=== PATIENT | male | born 1965 | race Caucasian/White ===

== ENCOUNTER 2018-01-06 13:25 | Emergency (ER) | payer OTHER ==
[2018-01-06 14:19] LABS: BASO % 0.4 % (0.0-1.0); EOS % 0.7 % (0.0-3.0); HEMATOCRIT 43.2 % (42.0-52.0); HEMOGLOBIN 15.1 g/dl (13.5-17.5); IMMATURE GRANULOCYTE % 0.2 % (0-3.0); LYMPH # 0.6 10^3/uL (1.5-4.5); LYMPH % 12.2 % (24.0-44.0); MEAN CORPUSCULAR HEMOGLOBIN 33.1 pg (27.0-33.0); MEAN CORPUSCULAR VOLUME 94.7 fl (80.0-96.0); MONO # 0.5 10^3/uL (0.0-0.8); MONO % 11.5 % (0.0-5.0); NEUTROPHILS # 3.4 10^3/uL (1.8-7.7); PLATELET COUNT, AUTOMATED 178 10^3/uL (150-450); RED BLOOD COUNT 4.56 10^6/uL (4.30-6.10); RED CELL DISTRIBUTION WIDTH 11.5 % (11.5-14.5); WHITE BLOOD COUNT 4.5 10^3/uL (4.0-10.0)
[2018-01-06 14:29] LABS: INR 0.94; PROTHROMBIN TIME 12.7 SECONDS (12.4-14.5)
[2018-01-06 14:41] LABS: ANION GAP 5 MEQ/L (8-16); BLOOD UREA NITROGEN 11 MG/DL (7-18); CALCIUM LEVEL 8.8 MG/DL (8.5-10.1); CARBON DIOXIDE LEVEL 30 MEQ/L (21-32); CHLORIDE LEVEL 109 MEQ/L (98-107); CREATININE FOR GFR 1.09 MG/DL (0.70-1.30); GLOMERULAR FILTRATION RATE > 60.0 (>56); GLUCOSE, FASTING 169 MG/DL (70-100); SODIUM LEVEL 144 MEQ/L (136-145)
[2018-01-06] MEDS ORDERED: ISOVUE-370 76% 100ML VIAL (Q9967) As Ordered (14:50)
[2018-01-06] MEDS ORDERED: cefTRIAXone SOD 1 GM VIAL (J0696) IM (16:15)
[2018-01-06] MEDS: cefTRIAXone SOD 1 GM in D5W MINI-BAG PLUS 50 ML IV (16:22)
== END 2018-01-06 16:58 | disposition home or self-care (01) ==
LOC: M ED 13:25
DX: J18.9 Pneumonia, unspecified organism (principal)
CPT/HCPCS: Q9967

== ENCOUNTER → 2018-01-06 | Outpatient (CLI) | payer OTHER | LOC: M ADAMS 12:20 | DX: R05 Cough (principal); R06.02 Shortness of breath | CPT/HCPCS: 71046 ==

== ENCOUNTER → 2020-01-16 | Outpatient (CLI) | payer OTHER ==
[~2020-01-16] MED LIST: PROAAER10 INH; ZITHTAB PO
--- NOTE | 2020-01-17 09:01 | REP ---
REASON FOR EXAM: Cough and dyspnea. COMPARISON: 01/06/2018 There is chronic elevation of the diaphragmatic surface of the left lung due to gas within the stomach. The lung castillo are clear and stable. The pleural angles are sharp. The heart is not enlarged. The osseous structures are stable and intact. IMPRESSION: No evidence of acute cardiopulmonary disease. Electronically Signed by Jimmy Ludwig DO 01/19/2020 10:53 A
== END ==
LOC: M ADAMS 10:42
PROVIDERS: ATTEND Physician Assistant Medical
DX: R06.02 Shortness of breath (principal); R05 Cough

== ENCOUNTER → 2020-02-02 | Outpatient (REF) | payer OTHER ==
[2020-02-02 14:15] LABS: BASO % 0.7 % (0.0-1.0); EOS # 0.2 10^3/uL (0.0-0.5); HEMATOCRIT 45.7 % (42.0-52.0); HEMOGLOBIN 15.9 g/dl (13.5-17.5); LYMPH % 18.9 % (24.0-44.0); MEAN CORPUSCULAR HGB CONC 34.8 g/dl (32.0-36.5); MEAN CORPUSCULAR VOLUME 97.6 fl (80.0-96.0); MONO # 0.7 10^3/uL (0.0-0.8); MONO % 13.5 % (0.0-5.0); NEUTROPHILS # 3.4 10^3/uL (1.5-8.5); NEUTROPHILS % 63.5 % (36.0-66.0); PLATELET COUNT, AUTOMATED 185 10^3/uL (150-450); RED BLOOD COUNT 4.68 10^6/uL (4.30-6.10); WHITE BLOOD COUNT 5.4 10^3/uL (4.0-10.0)
[2020-02-02 14:39] LABS: ALBUMIN 3.7 GM/DL (3.2-5.2); ALT/SGPT 65 U/L (12-78); BILIRUBIN,TOTAL 0.9 MG/DL (0.2-1.0); BLOOD UREA NITROGEN 13 MG/DL (7-18); CALCIUM LEVEL 9.1 MG/DL (8.5-10.1); CARBON DIOXIDE LEVEL 28 MEQ/L (21-32); CHLORIDE LEVEL 104 MEQ/L (98-107); CHOLESTEROL LEVEL 245 MG/DL (<200); CHOLESTEROL RISK RATIO 3.828 (<5); CREATININE FOR GFR 0.89 MG/DL (0.70-1.30); GLOMERULAR FILTRATION RATE > 60.0 (>56); GLUCOSE, FASTING 95 MG/DL (70-100); HDL CHOLESTEROL 64 MG/DL (>40); LDL CHOLESTEROL 142 MG/DL (<100); NON-HDL-C 181 MG/DL; POTASSIUM SERUM 4.4 MEQ/L (3.5-5.1); SODIUM LEVEL 138 MEQ/L (136-145); TOTAL 25(OH) VITAMIN D 53.8 NG/ML (30.0-100.0); TOTAL PROTEIN 7.1 GM/DL (6.4-8.2); TRIGLYCERIDES LEVEL 196 MG/DL (<150)
== END ==
LOC: M SFHCADAM 08:04
PROVIDERS: ATTEND Physician Assistant Medical
DX: E78.2 Mixed hyperlipidemia (principal); I10 Essential (primary) hypertension; R06.02 Shortness of breath; R05 Cough

== ENCOUNTER → 2021-04-14 | Outpatient (REF) | payer OTHER ==
[2021-04-14 15:01] LABS: BASO % 0.8 % (0.0-1.0); EOS # 0.1 10^3/uL (0.0-0.5); EOS % 3.4 % (0.0-3.0); HEMATOCRIT 43.1 % (42.0-52.0); HEMOGLOBIN 14.5 g/dl (13.5-17.5); LYMPH # 0.5 10^3/uL (1.5-5.0); LYMPH % 14.8 % (24.0-44.0); MEAN CORPUSCULAR HEMOGLOBIN 32.3 pg (27.0-33.0); MEAN CORPUSCULAR HGB CONC 33.6 g/dl (32.0-36.5); MONO # 0.5 10^3/uL (0.0-0.8); MONO % 12.6 % (2.0-8.0); NEUTROPHILS # 2.4 10^3/uL (1.5-8.5); NEUTROPHILS % 68.1 % (36.0-66.0); PLATELET COUNT, AUTOMATED 178 10^3/uL (150-450); RED BLOOD COUNT 4.49 10^6/uL (4.30-6.10); WHITE BLOOD COUNT 3.6 10^3/uL (4.0-10.0)
[2021-04-14 15:29] LABS: HEMOGLOBIN A1c 5.7 %
[2021-04-14 15:40] LABS: ALBUMIN 3.8 GM/DL (3.2-5.2); ALT/SGPT 48 U/L (12-78); BILIRUBIN,TOTAL 0.9 MG/DL (0.2-1.0); BLOOD UREA NITROGEN 6 MG/DL (7-18); CARBON DIOXIDE LEVEL 31 MEQ/L (21-32); CHLORIDE LEVEL 102 MEQ/L (98-107); CHOLESTEROL LEVEL 239 MG/DL (<200); CHOLESTEROL RISK RATIO 2.276 (<5); CREATININE FOR GFR 0.64 MG/DL (0.70-1.30); GLOMERULAR FILTRATION RATE > 60.0 (>56); GLUCOSE, FASTING 91 MG/DL (70-100); HDL CHOLESTEROL 105 MG/DL (>40); LDL CHOLESTEROL 122 MG/DL (<100); NON-HDL-C 134 MG/DL; POTASSIUM SERUM 4.5 MEQ/L (3.5-5.1); SODIUM LEVEL 137 MEQ/L (136-145); TOTAL PROTEIN 7.3 GM/DL (6.4-8.2); TRIGLYCERIDES LEVEL 60 MG/DL (<150)
== END ==
LOC: M SFHCADAM 08:05
PROVIDERS: ATTEND Physician Assistant Medical
DX: E78.2 Mixed hyperlipidemia (principal); I10 Essential (primary) hypertension

== ENCOUNTER → 2021-05-05 | Outpatient (CLI) | payer OTHER ==
--- NOTE | 2021-05-05 18:40 | ECHO ---
ECHOCARDIOGRAM DATE OF PROCEDURE: 05/05/2021 Age: 56 Gender: Male Height: 68 inches Weight: 181 pounds Body Surface Area: 1.95 PATIENT LOCATION: Outpatient. REFERRING PROVIDER: Lana Vigil INDICATION: Cardiomegaly. MEASUREMENTS: 2D Measurements: RV - 4.0 cm LV - 4.7 cm Septum 1.1 cm Posterior wall 1.1 cm Aortic root 3.8 cm Ascending aorta 3.7 cm LA - 4.0 cm LVEF 75% Doppler Measurements: AV - 1.3 m/sec LVOT 1.05 m/sec MV-E 76, A 52, EA ratio 1.5 Early mitral deceleration time 197 msec E prime medial 7.8 A prime medial 8.7 E prime lateral 7.5 Average E/E ratio 9.9/PCWP 14.2 mmHg PV 0.82 m/sec Pulmonary artery acceleration time 114 msec RVSP 34 mmHg IVC - 1.6 cm COMMENTS: Normal sinus rhythm without intraventricular conduction disturbance. Technically challenging study in light of the patient's body habitus, but diagnostically useful information was still obtained. M-mode and 2-dimensional echocardiography was performed with pulse, continuous wave, color flow and tissue Doppler studies. Left ventricular wall thickness upper limits of normal with normal chamber size and hyperkinetic wall motion. Borderline left atrial enlargement with currently normal Doppler assessment of left ventricular (LV) diastolic function and estimated mean left atrial pressure. Right heart chambers upper limits of normal with normal wall motion and Doppler evidence of mild pulmonary hypertension. Normal inferior vena cava (IVC) size and collapse against an elevated central venous pressure. Aortic root diameter upper limits of normal with borderline increased ascending aorta diameter. Normal appearing and functioning aortic valve. Normal appearing and functioning mitral valve with only trace insufficiency. Normal appearing and functioning tricuspid valve with very mild insufficiency. No apparent intracardiac mass or pericardial effusion.
== END ==
LOC: M CARPUL 10:41
PROVIDERS: ATTEND Physician Assistant Medical
DX: I51.7 Cardiomegaly (principal)

== ENCOUNTER 2021-08-12 16:38 | Emergency (ER) | payer OTHER ==
[~2021-08-12] VITALS: Ht 175.3 cm; Wt 83.2 kg
[2021-08-12] MEDS ORDERED: ZINC1TAB2 PO (16:49)
[2021-08-12] MEDS ORDERED: LEXA1TAB PO (16:49)
[2021-08-12] MEDS ORDERED: NS 1,000 ML IV ONE (16:50)
[2021-08-12 17:30] VITALS: BP 143/88
[2021-08-12 17:40] LABS: BASO % 0.5 % (0.0-1.0); EOS # 0.1 10^3/uL (0.0-0.5); EOS % 1.3 % (0.0-3.0); HEMATOCRIT 41.6 % (42.0-52.0); HEMOGLOBIN 14.3 g/dl (13.5-17.5); LYMPH # 0.8 10^3/uL (1.5-5.0); LYMPH % 12.5 % (24.0-44.0); MEAN CORPUSCULAR HEMOGLOBIN 33.4 pg (27.0-33.0); MEAN CORPUSCULAR HGB CONC 34.4 g/dl (32.0-36.5); MEAN CORPUSCULAR VOLUME 97.2 fl (80.0-96.0); MONO # 0.5 10^3/uL (0.0-0.8); MONO % 8.7 % (2.0-8.0); NEUTROPHILS # 4.7 10^3/uL (1.5-8.5); NEUTROPHILS % 76.7 % (36.0-66.0); PLATELET COUNT, AUTOMATED 178 10^3/uL (150-450); RED BLOOD COUNT 4.28 10^6/uL (4.30-6.10); WHITE BLOOD COUNT 6.1 10^3/uL (4.0-10.0)
--- NOTE | 2021-08-12 17:42 | REP ---
INDICATION: Drug Overdose COMPARISON: 01/16/2020 TECHNIQUE: Portable AP view of the chest FINDINGS: The mediastinum and cardiac silhouette are stable and within normal limits for portable technique. The lung castillo are clear without acute consolidation, effusion, or pneumothorax. Skeletal structures are intact. IMPRESSION: No acute cardiopulmonary process appreciated. <Electronically signed by Elbert Ayala > 08/12/21 [id number]
[2021-08-12 18:43] LABS: AMPHETAMINES LEVEL URINE NEGATIVE (NEGATIVE); BARBITURATES URINE NEGATIVE (NEGATIVE); BENZODIAZEPINES URINE NEGATIVE (NEGATIVE); CANNABINOIDS URINE POSITIVE (NEGATIVE); COCAINE METABOLITE URINE NEGATIVE (NEGATIVE); METHADONE URINE NEGATIVE (NEGATIVE); OPIATES URINE NEGATIVE (NEGATIVE); PHENCYCLIDINE URINE NEGATIVE (NEGATIVE)
[2021-08-12 19:17] LABS: ACETAMINOPHEN LEVEL < 2.0 UG/ML (10.0-30.0); ALBUMIN 4.1 GM/DL (3.2-5.2); ALT/SGPT 53 U/L (12-78); BILIRUBIN,DIRECT 0.1 MG/DL (0.0-0.2); BILIRUBIN,TOTAL 0.4 MG/DL (0.2-1.0); BLOOD UREA NITROGEN 12 MG/DL (7-18); CALCIUM LEVEL 8.7 MG/DL (8.5-10.1); CARBON DIOXIDE LEVEL 28 MEQ/L (21-32); CHLORIDE LEVEL 94 MEQ/L (98-107); CREATININE FOR GFR 0.66 MG/DL (0.70-1.30); GLOMERULAR FILTRATION RATE > 60.0 (>56); GLUCOSE, FASTING 113 MG/DL (70-100); POTASSIUM SERUM 4.4 MEQ/L (3.5-5.1); SALICYLATE LEVEL < 1.7 MG/DL (5.0-30.0); SODIUM LEVEL 132 MEQ/L (136-145); TOTAL PROTEIN 7.4 GM/DL (6.4-8.2)
--- NOTE | 2021-08-13 07:49 | ECGEPIP ---
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
== END 2021-08-12 20:46 | disposition home or self-care (01) ==
LOC: M ED 16:38
DX: R55 Syncope and collapse (principal); Z53.9 Procedure and treatment not carried out, unspecified reason; F32.9 Major depressive disorder, single episode, unspecified; F12.10 Cannabis abuse, uncomplicated; F10.10 Alcohol abuse, uncomplicated

== ENCOUNTER → 2022-06-01 | Outpatient (REF) | payer OTHER ==
[~2022-06-01] MED LIST changes: +LEXA1TAB PO; +ZINC1TAB2 PO
[2022-06-01 14:20] LABS: BLOOD UREA NITROGEN 5 MG/DL (7-18); CREATININE FOR GFR 0.71 MG/DL (0.70-1.30); GLUCOSE, FASTING 93 MG/DL (70-100)
[2022-06-01 14:21] LABS: ALBUMIN 4.2 GM/DL (3.2-5.2); ALT/SGPT 51 U/L (12-78); BILIRUBIN,TOTAL 0.6 MG/DL (0.2-1.0); CALCIUM LEVEL 9.2 MG/DL (8.5-10.1); CARBON DIOXIDE LEVEL 28 MEQ/L (21-32); CHLORIDE LEVEL 99 MEQ/L (98-107); CHOLESTEROL LEVEL 253 MG/DL (<200); CHOLESTEROL RISK RATIO 2.342 (<5); GLOMERULAR FILTRATION RATE > 60.0 (>56); HDL CHOLESTEROL 108 MG/DL (>40); LDL CHOLESTEROL 126 MG/DL (<100); NON-HDL-C 145 MG/DL; POTASSIUM SERUM 4.6 MEQ/L (3.5-5.1); SODIUM LEVEL 134 MEQ/L (136-145); TOTAL PROTEIN 7.6 GM/DL (6.4-8.2); TRIGLYCERIDES LEVEL 96 MG/DL (<150)
== END ==
LOC: M SFHCADAM 07:58
PROVIDERS: ATTEND Physician Assistant Medical
DX: E78.2 Mixed hyperlipidemia (principal)

== ENCOUNTER → 2022-08-11 | Outpatient (REF) | payer OTHER ==
[2022-08-11 13:18] LABS: ETHYL ALCOHOL (ETHANOL) 0.075 % (0.000-0.010)
[2022-08-11 13:20] LABS: C REACTIVE PROTEIN QUANTITATIV < 0.40 MG/DL (<1.0)
[2022-08-11 13:22] LABS: TOTAL 25(OH) VITAMIN D 13.1 NG/ML (20.0-100.0)
[2022-08-11 13:23] LABS: FOLATE 10.9 NG/ML (>5.4); VITAMIN B12 LEVEL 469 PG/ML (211-911)
== END ==
LOC: M SFHCADAM 08:10
PROVIDERS: ATTEND Physician Assistant Medical
DX: R41.3 Other amnesia (principal); F10.10 Alcohol abuse, uncomplicated; F68.8 Other specified disorders of adult personality and behavior

== ENCOUNTER → 2022-08-19 | Outpatient (CLI) | payer OTHER | LOC: M RAD 14:42 | PROVIDERS: ATTEND Physician Assistant Medical | DX: R41.3 Other amnesia (principal); F10.10 Alcohol abuse, uncomplicated; F63.81 Intermittent explosive disorder; F68.8 Other specified disorders of adult personality and behavior; G47.23 Circadian rhythm sleep disorder, irregular sleep wake type; J32.0 Chronic maxillary sinusitis ==

== ENCOUNTER 2022-09-19 14:55 | Inpatient (IN) | payer OTHER ==
[~2022-09-19] VITALS: Ht 175.3 cm; Wt 79.2 kg
[2022-09-19] VITALS (7 sets, daily range): BP systolic 107–133; BP diastolic 55–92
[2022-09-19] MEDS ORDERED: NS 2,480 ML in IV 1 EA IV ONE (15:20)
[2022-09-19] MEDS ORDERED: cefTRIAXone SOD 2 GM in D5W MINI-BAG PLUS 50 ML IV ONE (15:20)
[2022-09-19] MEDS ORDERED: ALBUTEROL SULFATE 2.5MG/0.5ML INH NEB SOLN INH ONE (15:20)
[2022-09-19] MEDS ORDERED: IPRATROPIUM 0.5MG/ALBUTEROL 2.5MG INH SOL UD 3ML (DUONEB) NEB ONE ×2 (15:20→17:50)
[2022-09-19 15:40] LABS: VENOUS HCO3 22.9 MEQ/L (23.0-27.0); VENOUS O2 SATURATION 96.4 % (60.0-80.0); VENOUS PARTIAL PRESSURE O2 98.5 mmHg (30.0-50.0); VENOUS PH 7.288 UNITS (7.330-7.430); VENOUS STANDARD HCO3 21.2 MEQ/L; VENOUS TOTAL CO2 24.4 MEQ/L (24.0-28.0)
[2022-09-19 15:44] LABS: BASO % 0.2 % (0.0-1.0); HEMATOCRIT 34.2 % (42.0-52.0); HEMOGLOBIN 12.5 g/dl (13.5-17.5); LYMPH # 0.3 10^3/uL (1.5-5.0); MEAN CORPUSCULAR HGB CONC 36.5 g/dl (32.0-36.5); MEAN CORPUSCULAR VOLUME 90.2 fl (80.0-96.0); MONO # 0.7 10^3/uL (0.0-0.8); MONO % 5.3 % (2.0-8.0); NEUTROPHILS # 11.5 10^3/uL (1.5-8.5); NEUTROPHILS % 91.6 % (36.0-66.0); PLATELET COUNT, AUTOMATED 188 10^3/uL (150-450); RED BLOOD COUNT 3.79 10^6/uL (4.30-6.10); WHITE BLOOD COUNT 12.6 10^3/uL (4.0-10.0)
[2022-09-19 15:56] LABS: INR 0.94; PROTHROMBIN TIME 12.8 SECONDS (12.5-14.5)
[2022-09-19 16:15] LABS: ETHYL ALCOHOL (ETHANOL) 0.004 % (0.000-0.010)
[2022-09-19 16:16] LABS: CPK CREATINE PHOSPHOKINASE 616 U/L (46-171)
[2022-09-19 16:25] LABS: ALKALINE PHOSPHATASE 59 U/L (46-116); ALT/SGPT 51 U/L (7.0-40); AST/SGOT 61 U/L (<34); BILIRUBIN,DIRECT 0.8 MG/DL (<0.4); BILIRUBIN,TOTAL 2.6 MG/DL (0.3-1.2); BLOOD UREA NITROGEN 9 MG/DL (9-23); CALCIUM LEVEL 8.2 MG/DL (8.5-10.1); CARBON DIOXIDE LEVEL 23 MMOL/L (20-31); CHLORIDE LEVEL 72 MMOL/L (98-107); CK-MB VALUE MASS 13.1 NG/ML (<3.6); CREATININE FOR GFR 0.53 MG/DL (0.70-1.30); GLOMERULAR FILTRATION RATE > 60.0 (>56); GLUCOSE, FASTING 169 MG/DL (60-100); MB/CK RELATIVE INDEX 2.12 (< OR =4); POTASSIUM SERUM 3.7 MMOL/L (3.5-5.1); SODIUM LEVEL 108 MMOL/L (136-145); THYROID STIMULATING HORMONE 0.702 uIU/ML (0.55-4.78); TOTAL PROTEIN 7.5 G/DL (5.7-8.2)
[2022-09-19] MEDS ORDERED: LORazepam 2 MG/ML 1ML VIAL IV STA ×4 (16:30→20:34)
[2022-09-19] MEDS ORDERED: LIDOCAINE 2% 5ML JELLY UROJET TOP ONE (16:40)
[2022-09-19] MEDS ORDERED: SODIUM CHLORIDE 3% 100 ML IV SCH (17:00)
[2022-09-19 17:16] LABS: OSMOLALITY SERUM 229 MOSM/KG (275-295)
[2022-09-19 17:17] LABS: OSMOLALITY URINE 578 MOSM/KG (50-1400)
[2022-09-19 17:29] LABS: AMPHETAMINES LEVEL URINE NEGATIVE (NEGATIVE); BARBITURATES URINE NEGATIVE (NEGATIVE); BENZODIAZEPINES URINE NEGATIVE (NEGATIVE); COCAINE METABOLITE URINE NEGATIVE (NEGATIVE); METHADONE URINE NEGATIVE (NEGATIVE); OPIATES URINE NEGATIVE (NEGATIVE); PHENCYCLIDINE URINE NEGATIVE (NEGATIVE)
[2022-09-19 17:33] LABS: CANNABINOIDS URINE POSITIVE (NEGATIVE); SODIUM,RANDOM URINE < 10 MMOL/L
[2022-09-19] MEDS ORDERED: methylPREDNISolone 125MG 2ML VIAL IV ONE (17:50)
[2022-09-19 18:11] LABS: ABG BASE EXCESS -5.9 (-2.0-2.0); ABG HCO3 20.4 MEQ/L (22.0-26.0); ABG O2 SATURATION 95.6 % (95.0-99.0); ABG PARTIAL PRESSURE O2 87.9 mmHg (75.0-100.0); ABG STANDARD HCO3 19.6 MEQ/L (22.0-26.0); ABG TOTAL CO2 21.7 MEQ/L (22.0-29.0); ABG pH (ARTERIAL) 7.293 UNITS (7.350-7.450)
[2022-09-19] MEDS ORDERED: ERGO500029 PO (19:19)
[2022-09-19] MEDS ORDERED: LISI20TA33 PO (19:19)
[2022-09-19] MEDS ORDERED: LEXA1TAB PO (19:19)
[2022-09-19] MEDS ORDERED: B-1100TA2 PO (19:19)
[2022-09-19] MEDS ORDERED: HOME MED LIST COMPLETE! XX SCH (19:20)
[2022-09-19 19:48] LABS: BLOOD UREA NITROGEN 10 MG/DL (9-23); CALCIUM LEVEL 7.3 MG/DL (8.5-10.1); CARBON DIOXIDE LEVEL 22 MMOL/L (20-31); CHLORIDE LEVEL 78 MMOL/L (98-107); CREATININE FOR GFR 0.67 MG/DL (0.70-1.30); GLOMERULAR FILTRATION RATE > 60.0 (>56); GLUCOSE, FASTING 150 MG/DL (60-100); POTASSIUM SERUM 3.3 MMOL/L (3.5-5.1); SODIUM LEVEL 111 MMOL/L (136-145)
[2022-09-19] MEDS: IPRATROPIUM 0.5MG/ALBUTEROL 2.5MG INH SOL UD 3ML (DUONEB) NEB SCH (20:00)
[2022-09-19] MEDS: CHLORHEXIDINE GLUCONATE 0.12 % 15ML UDC (PERIDEX ORAL RINSE) MT SCH (21:00)
[2022-09-19] MEDS: dexmedeTOMidine 200 MCG in IV 1 EA IV SCH (21:13)
[2022-09-19] MEDS: LORazepam 2 MG/ML 1ML VIAL IV PRN (21:14)
[2022-09-19] MEDS: KCL 10MEQ/100ML SWI (KRUN) 10 MEQ in IV 1 EA IV SCH ×2 (22:26→23:31)
[2022-09-19 22:46] LABS: BLOOD UREA NITROGEN 13 MG/DL (9-23); CALCIUM LEVEL 7.7 MG/DL (8.5-10.1); CARBON DIOXIDE LEVEL 24 MMOL/L (20-31); CHLORIDE LEVEL 80 MMOL/L (98-107); CREATININE FOR GFR 0.68 MG/DL (0.70-1.30); GLOMERULAR FILTRATION RATE > 60.0 (>56); GLUCOSE, FASTING 143 MG/DL (60-100); POTASSIUM SERUM 3.5 MMOL/L (3.5-5.1); SODIUM LEVEL 112 MMOL/L (136-145)
[2022-09-20] VITALS (25 sets, daily range): BP systolic 115–176; BP diastolic 54–88; O2SAT 96–100
[2022-09-20] MEDS ORDERED: LORazepam 2 MG/ML 1ML VIAL IV STA (00:08)
[2022-09-20] MEDS ORDERED: NS 250 ML IV ONE (00:10)
[2022-09-20] MEDS: IPRATROPIUM 0.5MG/ALBUTEROL 2.5MG INH SOL UD 3ML (DUONEB) NEB SCH ×7 (00:29→23:28)
[2022-09-20] MEDS: dexmedeTOMidine 200 MCG in IV 1 EA IV SCH ×5 (00:47→22:45)
[2022-09-20 00:52] LABS: ABG BASE EXCESS -1.5 (-2.0-2.0); ABG HCO3 22.6 MEQ/L (22.0-26.0); ABG O2 SATURATION 98.3 % (95.0-99.0); ABG PARTIAL PRESSURE CO2 35.5 mmHg (35.0-45.0); ABG STANDARD HCO3 23.3 MEQ/L (22.0-26.0); ABG TOTAL CO2 23.7 MEQ/L (22.0-29.0); ABG pH (ARTERIAL) 7.421 UNITS (7.350-7.450)
[2022-09-20] MEDS: KCL 10MEQ/100ML SWI (KRUN) 10 MEQ in IV 1 EA IV SCH (00:57)
[2022-09-20] MEDS: LORazepam 2 MG/ML 1ML VIAL IV PRN ×3 (02:08→19:43)
[2022-09-20 04:06] LABS: BLOOD UREA NITROGEN 14 MG/DL (9-23); CALCIUM LEVEL 7.6 MG/DL (8.5-10.1); CARBON DIOXIDE LEVEL 25 MMOL/L (20-31); CHLORIDE LEVEL 80 MMOL/L (98-107); CREATININE FOR GFR 0.65 MG/DL (0.70-1.30); GLOMERULAR FILTRATION RATE > 60.0 (>56); GLUCOSE, FASTING 153 MG/DL (60-100); POTASSIUM SERUM 4.1 MMOL/L (3.5-5.1); SODIUM LEVEL 113 MMOL/L (136-145)
[2022-09-20 04:23] LABS: MAGNESIUM LEVEL 1.6 MG/DL (1.8-2.4)
[2022-09-20] MEDS: MAG SULF 1GM/100ML (MAG RUN) 1 GM in IV 1 EA IV SCH ×2 (04:37→05:41)
[2022-09-20] MEDS: HEPARIN SOD (PORCINE) 5000UNITS/ML 1ML VIAL/SYRINGE SQ SCH ×3 (05:41→22:02)
[2022-09-20 07:24] LABS: BLOOD UREA NITROGEN 13 MG/DL (9-23); CALCIUM LEVEL 8.5 MG/DL (8.5-10.1); CARBON DIOXIDE LEVEL 25 MMOL/L (20-31); CHLORIDE LEVEL 83 MMOL/L (98-107); CREATININE FOR GFR 0.66 MG/DL (0.70-1.30); GLOMERULAR FILTRATION RATE > 60.0 (>56); GLUCOSE, FASTING 183 MG/DL (60-100); POTASSIUM SERUM 4.1 MMOL/L (3.5-5.1); SODIUM LEVEL 117 MMOL/L (136-145)
[2022-09-20] MEDS: CHLORHEXIDINE GLUCONATE 0.12 % 15ML UDC (PERIDEX ORAL RINSE) MT SCH ×2 (09:00→21:00)
[2022-09-20] MEDS: MULTIVITAMINS/MINERALS THERAP 1 TAB PO SCH (10:12)
[2022-09-20] MEDS: PANTOPRAZOLE 40MG VIAL IV SCH (10:12)
[2022-09-20] MEDS: THIAMINE 200MG 2ML VIAL IV SCH (10:12)
[2022-09-20 10:33] LABS: BLOOD UREA NITROGEN 11 MG/DL (9-23); CALCIUM LEVEL 8.5 MG/DL (8.5-10.1); CARBON DIOXIDE LEVEL 26 MMOL/L (20-31); CHLORIDE LEVEL 86 MMOL/L (98-107); CREATININE FOR GFR 0.76 MG/DL (0.70-1.30); GLOMERULAR FILTRATION RATE > 60.0 (>56); GLUCOSE, FASTING 133 MG/DL (60-100); SODIUM LEVEL 117 MMOL/L (136-145)
[2022-09-20 10:50] LABS: SODIUM,RANDOM URINE < 10 MMOL/L
[2022-09-20] MEDS: LORazepam 2 MG TAB PO PRN ×2 (12:26→19:53)
[2022-09-20 13:49] LABS: OSMOLALITY URINE 593 MOSM/KG (50-1400)
[2022-09-20] MEDS: OXAZEPAM 15MG CAP PO SCH ×2 (14:18→20:32)
[2022-09-20] MEDS: D5W 1,000 ML IV SCH (14:19)
[2022-09-20] MEDS: FOLIC ACID 1 MG in NS 50 ML IV SCH (14:41)
[2022-09-20 15:16] LABS: BLOOD UREA NITROGEN 12 MG/DL (9-23); CALCIUM LEVEL 8.5 MG/DL (8.5-10.1); CARBON DIOXIDE LEVEL 27 MMOL/L (20-31); CHLORIDE LEVEL 86 MMOL/L (98-107); GLOMERULAR FILTRATION RATE > 60.0 (>56); GLUCOSE, FASTING 106 MG/DL (60-100); POTASSIUM SERUM 4.2 MMOL/L (3.5-5.1); SODIUM LEVEL 116 MMOL/L (136-145)
[2022-09-20 18:39] LABS: BLOOD UREA NITROGEN 11 MG/DL (9-23); CALCIUM LEVEL 8.1 MG/DL (8.5-10.1); CARBON DIOXIDE LEVEL 26 MMOL/L (20-31); CHLORIDE LEVEL 86 MMOL/L (98-107); CREATININE FOR GFR 0.67 MG/DL (0.70-1.30); GLOMERULAR FILTRATION RATE > 60.0 (>56); GLUCOSE, FASTING 113 MG/DL (60-100); POTASSIUM SERUM 3.8 MMOL/L (3.5-5.1); SODIUM LEVEL 118 MMOL/L (136-145)
[2022-09-20 22:54] LABS: BLOOD UREA NITROGEN 9 MG/DL (9-23); CALCIUM LEVEL 7.8 MG/DL (8.5-10.1); CARBON DIOXIDE LEVEL 26 MMOL/L (20-31); CHLORIDE LEVEL 85 MMOL/L (98-107); CREATININE FOR GFR 0.59 MG/DL (0.70-1.30); GLOMERULAR FILTRATION RATE > 60.0 (>56); GLUCOSE, FASTING 138 MG/DL (60-100); POTASSIUM SERUM 3.7 MMOL/L (3.5-5.1); SODIUM LEVEL 115 MMOL/L (136-145)
[2022-09-21] VITALS (14 sets, daily range): BP systolic 134–184; BP diastolic 64–98
[2022-09-21] MEDS: dexmedeTOMidine 200 MCG in IV 1 EA IV SCH ×2 (01:05→09:09)
[2022-09-21] MEDS: D5W 1,000 ML IV SCH (01:59)
[2022-09-21 03:10] LABS: BLOOD UREA NITROGEN 7 MG/DL (9-23); CALCIUM LEVEL 8.3 MG/DL (8.5-10.1); CARBON DIOXIDE LEVEL 27 MMOL/L (20-31); CHLORIDE LEVEL 90 MMOL/L (98-107); CREATININE FOR GFR 0.55 MG/DL (0.70-1.30); GLOMERULAR FILTRATION RATE > 60.0 (>56); GLUCOSE, FASTING 156 MG/DL (60-100); POTASSIUM SERUM 3.6 MMOL/L (3.5-5.1); SODIUM LEVEL 125 MMOL/L (136-145)
[2022-09-21] MEDS: IPRATROPIUM 0.5MG/ALBUTEROL 2.5MG INH SOL UD 3ML (DUONEB) NEB SCH ×6 (03:55→23:30)
[2022-09-21 04:12] LABS: HEMATOCRIT 30.2 % (42.0-52.0); HEMOGLOBIN 10.8 g/dl (13.5-17.5); MEAN CORPUSCULAR HEMOGLOBIN 33.2 pg (27.0-33.0); MEAN CORPUSCULAR HGB CONC 35.8 g/dl (32.0-36.5); MEAN CORPUSCULAR VOLUME 92.9 fl (80.0-96.0); PLATELET COUNT, AUTOMATED 134 10^3/uL (150-450); RED BLOOD COUNT 3.25 10^6/uL (4.30-6.10); WHITE BLOOD COUNT 5.4 10^3/uL (4.0-10.0)
[2022-09-21 04:39] LABS: BLOOD UREA NITROGEN 9 MG/DL (9-23); CALCIUM LEVEL 8.7 MG/DL (8.5-10.1); CARBON DIOXIDE LEVEL 28 MMOL/L (20-31); CHLORIDE LEVEL 92 MMOL/L (98-107); GLOMERULAR FILTRATION RATE > 60.0 (>56); GLUCOSE, FASTING 147 MG/DL (60-100); POTASSIUM SERUM 3.6 MMOL/L (3.5-5.1); SODIUM LEVEL 126 MMOL/L (136-145)
[2022-09-21] MEDS ORDERED: DESMOPRESSIN 4 MCG/ML INJ VIAL/AMP SC ONE (05:00)
[2022-09-21] MEDS: HEPARIN SOD (PORCINE) 5000UNITS/ML 1ML VIAL/SYRINGE SQ SCH ×3 (05:50→22:00)
[2022-09-21] MEDS: OXAZEPAM 15MG CAP PO SCH ×4 (05:51→23:23)
[2022-09-21] MEDS ORDERED: D5W 1,000 ML IV ONE (08:25)
[2022-09-21] MEDS: CHLORHEXIDINE GLUCONATE 0.12 % 15ML UDC (PERIDEX ORAL RINSE) MT SCH ×2 (09:00→21:00)
[2022-09-21] MEDS: MULTIVITAMINS/MINERALS THERAP 1 TAB PO SCH (09:23)
[2022-09-21] MEDS: FOLIC ACID 1 MG in NS 50 ML IV SCH (09:23)
[2022-09-21] MEDS: PANTOPRAZOLE 40MG VIAL IV SCH (09:23)
[2022-09-21] MEDS: THIAMINE 200MG 2ML VIAL IV SCH (09:23)
[2022-09-21 11:14] LABS: BLOOD UREA NITROGEN 8 MG/DL (9-23); CALCIUM LEVEL 8.5 MG/DL (8.5-10.1); CARBON DIOXIDE LEVEL 25 MMOL/L (20-31); CHLORIDE LEVEL 90 MMOL/L (98-107); CREATININE FOR GFR 0.63 MG/DL (0.70-1.30); GLOMERULAR FILTRATION RATE > 60.0 (>56); GLUCOSE, FASTING 152 MG/DL (60-100); POTASSIUM SERUM 3.6 MMOL/L (3.5-5.1); SODIUM LEVEL 122 MMOL/L (136-145)
[2022-09-21 13:29] LABS: BLOOD UREA NITROGEN 8 MG/DL (9-23); CALCIUM LEVEL 8.1 MG/DL (8.5-10.1); CARBON DIOXIDE LEVEL 28 MMOL/L (20-31); CHLORIDE LEVEL 86 MMOL/L (98-107); CREATININE FOR GFR 0.53 MG/DL (0.70-1.30); GLOMERULAR FILTRATION RATE > 60.0 (>56); GLUCOSE, FASTING 96 MG/DL (60-100); POTASSIUM SERUM 3.3 MMOL/L (3.5-5.1); SODIUM LEVEL 122 MMOL/L (136-145)
[2022-09-21] MEDS ORDERED: POTASSIUM CHLORIDE 10MEQ SR TABLET PO ONE (13:55)
[2022-09-21 18:36] LABS: BLOOD UREA NITROGEN 8 MG/DL (9-23); CALCIUM LEVEL 8.3 MG/DL (8.5-10.1); CARBON DIOXIDE LEVEL 29 MMOL/L (20-31); CHLORIDE LEVEL 85 MMOL/L (98-107); CREATININE FOR GFR 0.61 MG/DL (0.70-1.30); GLOMERULAR FILTRATION RATE > 60.0 (>56); GLUCOSE, FASTING 99 MG/DL (60-100); POTASSIUM SERUM 3.7 MMOL/L (3.5-5.1); SODIUM LEVEL 121 MMOL/L (136-145)
[2022-09-21] MEDS: LORazepam 2 MG/ML 1ML VIAL IV PRN (20:06)
[2022-09-21] MEDS: LORazepam 2 MG TAB PO PRN ×2 (20:24→23:26)
[2022-09-21 23:02] LABS: BLOOD UREA NITROGEN 6 MG/DL (9-23); CALCIUM LEVEL 8.2 MG/DL (8.5-10.1); CARBON DIOXIDE LEVEL 28 MMOL/L (20-31); CHLORIDE LEVEL 86 MMOL/L (98-107); CREATININE FOR GFR 0.66 MG/DL (0.70-1.30); GLOMERULAR FILTRATION RATE > 60.0 (>56); GLUCOSE, FASTING 105 MG/DL (60-100); POTASSIUM SERUM 3.7 MMOL/L (3.5-5.1); SODIUM LEVEL 120 MMOL/L (136-145)
[2022-09-22] VITALS (12 sets, daily range): BP systolic 146–192; BP diastolic 59–88
[2022-09-22] MEDS: LORazepam 2 MG/ML 1ML VIAL IV PRN (00:21)
[2022-09-22] MEDS ORDERED: ACETAMINOPHEN 325 MG TAB PO ONE (01:00)
[2022-09-22 01:36] LABS: APPEARANCE, URINE MANUAL CLEAR (CLEAR); COLOR, URINE MANUAL YELLOW (YELLOW)
[2022-09-22 01:37] LABS: BILIRUBIN, URINE MANUAL NEGATIVE (NEGATIVE); GLUCOSE, URINE (UA) MANUAL NEGATIVE (NEGATIVE); KETONE, URINE MANUAL NEGATIVE (NEGATIVE); NITRITE, URINE MANUAL NEGATIVE (NEGATIVE); PROTEIN, URINE MANUAL NEGATIVE (NEGATIVE); UROBILINOGEN, URINE MANUAL NORMAL (NORMAL)
[2022-09-22 01:38] LABS: BLOOD URINE MANUAL POSITIVE (NEGATIVE); LEUKOCYTE ESTERASE, URINE MAN NEGATIVE (NEGATIVE)
[2022-09-22 01:43] LABS: BACTERIA, URINE NONE SEEN; HYALINE CAST, URINE NONE SEEN /lpf (0-1); RBC, URINE 20-30 /hpf (0-3); SQUAMOUS EPITHELIAL CELL URINE NONE SEEN /hpf (SMALL AMT)
[2022-09-22] MEDS: IPRATROPIUM 0.5MG/ALBUTEROL 2.5MG INH SOL UD 3ML (DUONEB) NEB SCH ×7 (02:49→23:56)
[2022-09-22 03:21] LABS: BASO % 0.2 % (0.0-1.0); EOS % 0.5 % (0.0-3.0); HEMATOCRIT 31.6 % (42.0-52.0); HEMOGLOBIN 11.3 g/dl (13.5-17.5); LYMPH # 0.4 10^3/uL (1.5-5.0); MEAN CORPUSCULAR HEMOGLOBIN 33.4 pg (27.0-33.0); MEAN CORPUSCULAR HGB CONC 35.8 g/dl (32.0-36.5); MEAN CORPUSCULAR VOLUME 93.5 fl (80.0-96.0); MONO # 0.8 10^3/uL (0.0-0.8); MONO % 13.3 % (2.0-8.0); NEUTROPHILS # 4.8 10^3/uL (1.5-8.5); NEUTROPHILS % 78.5 % (36.0-66.0); PLATELET COUNT, AUTOMATED 162 10^3/uL (150-450); RED BLOOD COUNT 3.38 10^6/uL (4.30-6.10); WHITE BLOOD COUNT 6.2 10^3/uL (4.0-10.0)
[2022-09-22 03:46] LABS: BLOOD UREA NITROGEN 8 MG/DL (9-23); CALCIUM LEVEL 8.3 MG/DL (8.5-10.1); CARBON DIOXIDE LEVEL 29 MMOL/L (20-31); CHLORIDE LEVEL 86 MMOL/L (98-107); CREATININE FOR GFR 0.66 MG/DL (0.70-1.30); GLOMERULAR FILTRATION RATE > 60.0 (>56); GLUCOSE, FASTING 100 MG/DL (60-100); MAGNESIUM LEVEL 1.7 MG/DL (1.8-2.4); POTASSIUM SERUM 3.8 MMOL/L (3.5-5.1); SODIUM LEVEL 120 MMOL/L (136-145)
[2022-09-22] MEDS: HEPARIN SOD (PORCINE) 5000UNITS/ML 1ML VIAL/SYRINGE SQ SCH ×3 (06:00→21:01)
[2022-09-22] MEDS: OXAZEPAM 15MG CAP PO SCH ×4 (06:51→21:01)
[2022-09-22] MEDS ORDERED: MAG SULF 1GM/100ML (MAG RUN) 1 GM in IV 1 EA IV ONE (08:00)
[2022-09-22] MEDS: FOLIC ACID 1 MG in NS 50 ML IV SCH (08:13)
[2022-09-22] MEDS: MULTIVITAMINS/MINERALS THERAP 1 TAB PO SCH (08:13)
[2022-09-22] MEDS: PANTOPRAZOLE 40MG VIAL IV SCH (08:13)
[2022-09-22] MEDS: THIAMINE 200MG 2ML VIAL IV SCH (08:14)
[2022-09-22] MEDS: CHLORHEXIDINE GLUCONATE 0.12 % 15ML UDC (PERIDEX ORAL RINSE) MT SCH (08:26)
[2022-09-22 09:07] LABS: OSMOLALITY URINE 206 MOSM/KG (50-1400)
[2022-09-22 09:21] LABS: SODIUM,RANDOM URINE 57 MMOL/L
[2022-09-22] MEDS ORDERED: NS 1,000 ML IV SCH (10:00)
[2022-09-22] MEDS ORDERED: QUEtiapine FUMARATE 25 MG TAB PO PRN (11:00)
[2022-09-22] MEDS ORDERED: LORazepam 2 MG/ML 1ML VIAL IV PRN (11:00)
[2022-09-22 16:19] LABS: BLOOD UREA NITROGEN 5 MG/DL (9-23); CALCIUM LEVEL 8.8 MG/DL (8.5-10.1); CARBON DIOXIDE LEVEL 30 MMOL/L (20-31); CHLORIDE LEVEL 90 MMOL/L (98-107); CREATININE FOR GFR 0.65 MG/DL (0.70-1.30); GLOMERULAR FILTRATION RATE > 60.0 (>56); GLUCOSE, FASTING 122 MG/DL (60-100); POTASSIUM SERUM 3.6 MMOL/L (3.5-5.1); SODIUM LEVEL 128 MMOL/L (136-145)
[2022-09-22 23:27] LABS: BLOOD UREA NITROGEN 8 MG/DL (9-23); CALCIUM LEVEL 8.6 MG/DL (8.5-10.1); CARBON DIOXIDE LEVEL 28 MMOL/L (20-31); CHLORIDE LEVEL 92 MMOL/L (98-107); CREATININE FOR GFR 0.61 MG/DL (0.70-1.30); GLOMERULAR FILTRATION RATE > 60.0 (>56); GLUCOSE, FASTING 164 MG/DL (60-100); POTASSIUM SERUM 3.2 MMOL/L (3.5-5.1); SODIUM LEVEL 128 MMOL/L (136-145)
[2022-09-23] VITALS (8 sets, daily range): BP systolic 124–154; BP diastolic 69–89
[2022-09-23] MEDS ORDERED: POTASSIUM CHLORIDE 10% LIQ 20MEQ/15ML UDC PO ONE (01:00)
[2022-09-23] MEDS: OXAZEPAM 15MG CAP PO SCH ×6 (01:19→23:54)
[2022-09-23] MEDS ORDERED: POTASSIUM CHLORIDE 10MEQ SR TABLET PO ONE (02:00)
[2022-09-23] MEDS: IPRATROPIUM 0.5MG/ALBUTEROL 2.5MG INH SOL UD 3ML (DUONEB) NEB SCH ×6 (03:08→23:44)
[2022-09-23] MEDS: HEPARIN SOD (PORCINE) 5000UNITS/ML 1ML VIAL/SYRINGE SQ SCH ×3 (05:58→21:00)
[2022-09-23 06:33] LABS: HEMATOCRIT 35.9 % (42.0-52.0); HEMOGLOBIN 12.8 g/dl (13.5-17.5); MEAN CORPUSCULAR HEMOGLOBIN 33.8 pg (27.0-33.0); MEAN CORPUSCULAR HGB CONC 35.7 g/dl (32.0-36.5); MEAN CORPUSCULAR VOLUME 94.7 fl (80.0-96.0); PLATELET COUNT, AUTOMATED 203 10^3/uL (150-450); RED BLOOD COUNT 3.79 10^6/uL (4.30-6.10)
[2022-09-23 06:58] LABS: BLOOD UREA NITROGEN 6 MG/DL (9-23); CALCIUM LEVEL 8.7 MG/DL (8.5-10.1); CARBON DIOXIDE LEVEL 30 MMOL/L (20-31); CHLORIDE LEVEL 95 MMOL/L (98-107); CREATININE FOR GFR 0.69 MG/DL (0.70-1.30); GLOMERULAR FILTRATION RATE > 60.0 (>56); GLUCOSE, FASTING 120 MG/DL (60-100); MAGNESIUM LEVEL 1.9 MG/DL (1.8-2.4); POTASSIUM SERUM 3.6 MMOL/L (3.5-5.1); SODIUM LEVEL 128 MMOL/L (136-145)
[2022-09-23] MEDS: THIAMINE 200MG 2ML VIAL IV SCH (08:15)
[2022-09-23] MEDS: MULTIVITAMINS/MINERALS THERAP 1 TAB PO SCH (08:15)
[2022-09-23] MEDS: FOLIC ACID 1 MG in NS 50 ML IV SCH (08:15)
[2022-09-23] MEDS: PANTOPRAZOLE 40MG VIAL IV SCH (08:15)
[2022-09-23 16:35] LABS: BLOOD UREA NITROGEN 9 MG/DL (9-23); CALCIUM LEVEL 8.7 MG/DL (8.5-10.1); CARBON DIOXIDE LEVEL 26 MMOL/L (20-31); CHLORIDE LEVEL 96 MMOL/L (98-107); CREATININE FOR GFR 0.63 MG/DL (0.70-1.30); GLOMERULAR FILTRATION RATE > 60.0 (>56); GLUCOSE, FASTING 130 MG/DL (60-100); POTASSIUM SERUM 3.9 MMOL/L (3.5-5.1); SODIUM LEVEL 131 MMOL/L (136-145)
[2022-09-23 23:45] LABS: BLOOD UREA NITROGEN 11 MG/DL (9-23); CALCIUM LEVEL 8.8 MG/DL (8.5-10.1); CARBON DIOXIDE LEVEL 27 MMOL/L (20-31); CHLORIDE LEVEL 94 MMOL/L (98-107); CREATININE FOR GFR 0.68 MG/DL (0.70-1.30); GLOMERULAR FILTRATION RATE > 60.0 (>56); GLUCOSE, FASTING 131 MG/DL (60-100); POTASSIUM SERUM 3.9 MMOL/L (3.5-5.1); SODIUM LEVEL 129 MMOL/L (136-145)
[2022-09-24] MEDS: IPRATROPIUM 0.5MG/ALBUTEROL 2.5MG INH SOL UD 3ML (DUONEB) NEB SCH ×3 (03:16→13:02)
[2022-09-24 03:55] VITALS: BP 108/69
[2022-09-24 05:02] LABS: HEMATOCRIT 36.6 % (42.0-52.0); HEMOGLOBIN 12.6 g/dl (13.5-17.5); MEAN CORPUSCULAR HEMOGLOBIN 33.4 pg (27.0-33.0); MEAN CORPUSCULAR HGB CONC 34.4 g/dl (32.0-36.5); MEAN CORPUSCULAR VOLUME 97.1 fl (80.0-96.0); PLATELET COUNT, AUTOMATED 204 10^3/uL (150-450); RED BLOOD COUNT 3.77 10^6/uL (4.30-6.10); WHITE BLOOD COUNT 6.8 10^3/uL (4.0-10.0)
[2022-09-24] MEDS: OXAZEPAM 15MG CAP PO SCH (05:20)
[2022-09-24] MEDS: HEPARIN SOD (PORCINE) 5000UNITS/ML 1ML VIAL/SYRINGE SQ SCH (05:20)
[2022-09-24 05:22] LABS: BLOOD UREA NITROGEN 10 MG/DL (9-23); CALCIUM LEVEL 8.7 MG/DL (8.5-10.1); CARBON DIOXIDE LEVEL 28 MMOL/L (20-31); CHLORIDE LEVEL 93 MMOL/L (98-107); CREATININE FOR GFR 0.65 MG/DL (0.70-1.30); GLOMERULAR FILTRATION RATE > 60.0 (>56); GLUCOSE, FASTING 128 MG/DL (60-100); MAGNESIUM LEVEL 1.8 MG/DL (1.8-2.4); POTASSIUM SERUM 3.7 MMOL/L (3.5-5.1); SODIUM LEVEL 130 MMOL/L (136-145)
[2022-09-24 07:50] LABS: BLOOD UREA NITROGEN 8 MG/DL (9-23); CALCIUM LEVEL 8.6 MG/DL (8.5-10.1); CARBON DIOXIDE LEVEL 29 MMOL/L (20-31); CHLORIDE LEVEL 93 MMOL/L (98-107); CREATININE FOR GFR 0.73 MG/DL (0.70-1.30); GLOMERULAR FILTRATION RATE > 60.0 (>56); GLUCOSE, FASTING 116 MG/DL (60-100); POTASSIUM SERUM 4.3 MMOL/L (3.5-5.1); SODIUM LEVEL 130 MMOL/L (136-145)
[2022-09-24 08:01] VITALS: BP 138/90
[2022-09-24] MEDS ORDERED: FOLIC ACID 1MG TAB PO SCH (09:00)
[2022-09-24] MEDS ORDERED: FOLI1TAB11 PO (09:12)
[2022-09-24] MEDS ORDERED: VITMTA PO (09:12)
[2022-09-24 09:13] VITALS: BP 138/90
[2022-09-24] MEDS: THIAMINE 200MG 2ML VIAL IV SCH (09:13)
[2022-09-24] MEDS: PANTOPRAZOLE 40MG VIAL IV SCH (09:13)
[2022-09-24] MEDS: MULTIVITAMINS/MINERALS THERAP 1 TAB PO SCH (09:13)
[2022-09-24] MEDS ORDERED: OXAZEPAM 15MG CAP PO SCH (21:00)
== END 2022-09-24 14:00 | disposition home health service (06) | DRG 775 ==
LOC: M ED 14:55 → EDBD 14:55 → M ED INP 18:18 → ENRESERV 20:23 → M ICU 20:52 → M PCU 09-23 16:38
PROVIDERS: ADMIT Internal Medicine Critical Care Medicine; ATTEND Family Medicine
DX: F10.139 Alcohol abuse with withdrawal, unspecified (principal); F02.80 Dementia in other diseases classified elsewhere, unspecified severity, without behavioral disturbance, psychotic disturbance, mood disturbance, and anxiety; I10 Essential (primary) hypertension; G30.9 Alzheimer's disease, unspecified; E87.1 Hypo-osmolality and hyponatremia; R00.0 Tachycardia, unspecified; E78.5 Hyperlipidemia, unspecified; F32.A Depression, unspecified; F12.90 Cannabis use, unspecified, uncomplicated

== ENCOUNTER → 2022-09-28 | Outpatient (REF) | payer OTHER ==
[~2022-09-28] MED LIST changes: +B-1100TA2 PO; +ERGO500029 PO; +FOLI1TAB11 PO; +LISI20TA33 PO; +VITMTA PO
[2022-09-29 13:31] LABS: BLOOD UREA NITROGEN 11 MG/DL (9-23); CALCIUM LEVEL 8.3 MG/DL (8.5-10.1); CARBON DIOXIDE LEVEL 27 MMOL/L (20-31); CHLORIDE LEVEL 100 MMOL/L (98-107); CREATININE FOR GFR 0.94 MG/DL (0.70-1.30); GLOMERULAR FILTRATION RATE > 60.0 (>56); GLUCOSE, FASTING 78 MG/DL (60-100); SODIUM LEVEL 135 MMOL/L (136-145)
[2022-09-29 13:33] LABS: POTASSIUM SERUM 6.2 MMOL/L (3.5-5.1)
== END ==
LOC: M SFHCADAM 15:55
PROVIDERS: ATTEND Physician Assistant Medical
DX: E87.1 Hypo-osmolality and hyponatremia (principal)

== ENCOUNTER → 2022-10-19 | Outpatient (REF) | payer OTHER ==
[2022-10-19 13:26] LABS: ETHYL ALCOHOL (ETHANOL) 0.022 % (0.000-0.010); FOLATE > 24.0 NG/ML (>5.4); TOTAL 25(OH) VITAMIN D 59.7 NG/ML (20.0-100.0); VITAMIN B12 LEVEL 341 PG/ML (211-911)
[2022-10-19 13:29] LABS: C REACTIVE PROTEIN QUANTITATIV < 0.40 MG/DL (<1.0)
[2022-10-24 06:08] LABS: CANNABINOID, URINE Positive (Cutoff=20); CARBOXY THC (GC/MS) 102 ng/mL (Cutoff=10); CREATININE, URINE 214.6 mg/dL (20.0-300.0)
== END ==
LOC: M SFHCADAM 08:00
PROVIDERS: ATTEND Physician Assistant Medical
DX: R41.3 Other amnesia (principal); F10.10 Alcohol abuse, uncomplicated; F68.8 Other specified disorders of adult personality and behavior

== ENCOUNTER 2022-11-30 14:07 | Emergency (ER) | payer OTHER ==
[~2022-11-30] VITALS: Ht 175.3 cm; Wt 75.0 kg
[2022-11-30 15:09] LABS: BASO % 0.4 % (0.0-1.0); HEMATOCRIT 40.2 % (42.0-52.0); HEMOGLOBIN 13.9 g/dl (13.5-17.5); LYMPH # 0.4 10^3/uL (1.5-5.0); LYMPH % 6.8 % (24.0-44.0); MEAN CORPUSCULAR HEMOGLOBIN 33.3 pg (27.0-33.0); MEAN CORPUSCULAR HGB CONC 34.6 g/dl (32.0-36.5); MEAN CORPUSCULAR VOLUME 96.2 fl (80.0-96.0); MONO # 0.2 10^3/uL (0.0-0.8); MONO % 4.1 % (2.0-8.0); NEUTROPHILS # 4.6 10^3/uL (1.5-8.5); NEUTROPHILS % 88.3 % (36.0-66.0); PLATELET COUNT, AUTOMATED 177 10^3/uL (150-450); RED BLOOD COUNT 4.18 10^6/uL (4.30-6.10); WHITE BLOOD COUNT 5.2 10^3/uL (4.0-10.0)
[2022-11-30 15:39] LABS: CPK CREATINE PHOSPHOKINASE 156 U/L (46-171)
[2022-11-30 15:49] LABS: ALBUMIN 4.1 G/DL (3.2-5.2); ALKALINE PHOSPHATASE 72 U/L (46-116); ALT/SGPT 40 U/L (7.0-40); AST/SGOT 35 U/L (<34); BILIRUBIN,DIRECT 0.2 MG/DL (<0.4); BILIRUBIN,TOTAL 0.8 MG/DL (0.3-1.2); BLOOD UREA NITROGEN 9 MG/DL (9-23); CALCIUM LEVEL 8.9 MG/DL (8.5-10.1); CARBON DIOXIDE LEVEL 26 MMOL/L (20-31); CHLORIDE LEVEL 103 MMOL/L (98-107); CREATININE FOR GFR 0.55 MG/DL (0.70-1.30); GLOMERULAR FILTRATION RATE > 60.0 (>56); GLUCOSE, FASTING 144 MG/DL (60-100); MB/CK RELATIVE INDEX 1.28 (< OR =4); POTASSIUM SERUM 4.1 MMOL/L (3.5-5.1); SODIUM LEVEL 137 MMOL/L (136-145); TOTAL PROTEIN 7.4 G/DL (5.7-8.2)
[2022-11-30 15:53] LABS: ETHYL ALCOHOL (ETHANOL) < 0.003 % (0.000-0.010); LIPASE 46 U/L (12-53)
[2022-11-30] MEDS ORDERED: PANTOPRAZOLE 40MG VIAL IV ONE (16:20)
[2022-11-30] MEDS ORDERED: GI COCKTAIL 50ML BTL(HYOSCYAMINE/MAALOX/LIDOCAINE VISCOUS)(1:3:1) PO ONE (16:20)
[2022-11-30] MEDS ORDERED: ISOVUE-370 76% 100ML VIAL As Ordered ONE (16:28)
[2022-11-30] MEDS ORDERED: ONDANSETRON 4MG 2ML VIAL IV ONE (17:20)
[2022-11-30 18:31] LABS: RSV AMPLIFICATION NEGATIVE (NEGATIVE)
[2022-11-30 20:45] VITALS: BP 151/71
[2022-11-30 20:53] VITALS: O2SAT 97
[2022-11-30] MEDS ORDERED: CARA1TAB6 PO (20:56)
[2022-11-30] MEDS ORDERED: ONDA4TAB6 PO (20:56)
== END 2022-11-30 21:23 | disposition home or self-care (01) ==
LOC: M ED 14:07 → EDBD 14:07 → M ED 21:23
DX: K29.20 Alcoholic gastritis without bleeding (principal); K76.0 Fatty (change of) liver, not elsewhere classified; D18.09 Hemangioma of other sites; K76.89 Other specified diseases of liver; I10 Essential (primary) hypertension; F10.10 Alcohol abuse, uncomplicated; Z79.899 Other long term (current) drug therapy
CPT/HCPCS: 71045; 71275; 74177; 80048; 80076; 82077; 82550; 82553; 83690; 84484; 85025; 87631; 93005; 93041; 94760; 96374; 96375; 99285; C9113; J2405; Q9967

== ENCOUNTER 2023-06-10 18:20 | Inpatient (IN) | payer OTHER ==
[~2023-06-10] VITALS: Ht 177.8 cm; Wt 87.5 kg
[~2023-06-10 18:20] MED LIST changes: +CARA1TAB6 PO; +ONDA4TAB6 PO
[2023-06-10 19:10] LABS: BASO % 0.1 % (0.0-1.0); HEMATOCRIT 39.2 % (42.0-52.0); HEMOGLOBIN 13.9 g/dl (13.5-17.5); LYMPH # 0.4 10^3/uL (1.5-5.0); LYMPH % 3.7 % (24.0-44.0); MEAN CORPUSCULAR HEMOGLOBIN 33.6 pg (27.0-33.0); MEAN CORPUSCULAR HGB CONC 35.5 g/dl (32.0-36.5); MEAN CORPUSCULAR VOLUME 94.7 fl (80.0-96.0); MONO # 1.4 10^3/uL (0.0-0.8); MONO % 12.2 % (2.0-8.0); NEUTROPHILS # 9.4 10^3/uL (1.5-8.5); NEUTROPHILS % 83.6 % (36.0-66.0); PLATELET COUNT, AUTOMATED 136 10^3/uL (150-450); RED BLOOD COUNT 4.14 10^6/uL (4.30-6.10); WHITE BLOOD COUNT 11.2 10^3/uL (4.0-10.0)
[2023-06-10 19:38] LABS: VENOUS BASE EXCESS -4.5 (-2.0-2.0); VENOUS HCO3 21.4 MMOL/L (23.0-27.0); VENOUS O2 SATURATION 49.7 % (60.0-80.0); VENOUS PARTIAL PRESSURE CO2 42.1 mmHg (38.0-50.0); VENOUS PARTIAL PRESSURE O2 29.3 mmHg (30.0-50.0); VENOUS PH 7.323 UNITS (7.330-7.430); VENOUS STANDARD HCO3 19.7 MMOL/L; VENOUS TOTAL CO2 22.6 MMOL/L (24.0-28.0)
[2023-06-10 20:35] LABS: CK-MB VALUE MASS 123.6 NG/ML (<3.6)
[2023-06-10 20:37] LABS: OSMOLALITY SERUM 282 MOSM/KG (275-295)
[2023-06-10 20:38] LABS: THYROID STIMULATING HORMONE 2.986 uIU/ML (0.55-4.78)
[2023-06-10 20:41] LABS: ETHYL ALCOHOL (ETHANOL) < 0.003 % (0.000-0.010)
[2023-06-10 20:42] LABS: SALICYLATE LEVEL < 3.0 MG/DL (<30)
[2023-06-10 20:43] LABS: ALBUMIN 3.5 G/DL (3.2-5.2); ALKALINE PHOSPHATASE 51 U/L (46-116); ALT/SGPT 242 U/L (7.0-40); AST/SGOT 873 U/L (<34); BILIRUBIN,DIRECT 0.3 MG/DL (<0.4); BILIRUBIN,TOTAL 1.1 MG/DL (0.3-1.2); BLOOD UREA NITROGEN 52 MG/DL (9-23); CALCIUM LEVEL 8.1 MG/DL (8.3-10.6); CARBON DIOXIDE LEVEL 22 MMOL/L (20-31); CHLORIDE LEVEL 95 MMOL/L (98-107); CREATININE FOR GFR 3.58 MG/DL (0.70-1.30); GLOMERULAR FILTRATION RATE 18.6 (>49); GLUCOSE, FASTING 121 MG/DL (74-106); POTASSIUM SERUM 5.2 MMOL/L (3.5-5.1); SODIUM LEVEL 131 MMOL/L (136-145); TOTAL PROTEIN 6.3 G/DL (5.7-8.2)
[2023-06-10 20:56] LABS: MB/CK RELATIVE INDEX 0.33 (< OR =4)
[2023-06-10] MEDS ORDERED: NS 1,000 ML IV ONE ×2 (21:15→22:50)
[2023-06-10 21:37] LABS: CK-MB VALUE MASS 126.8 NG/ML (<3.6)
[2023-06-10 22:01] LABS: MB/CK RELATIVE INDEX 0.36 (< OR =4)
[2023-06-10 22:04] LABS: INR 1.12; PROTHROMBIN TIME 14.1 SECONDS (12.5-14.5)
[2023-06-10 22:05] LABS: PARTIAL THROMBOPLASTIN TIME 26.7 SECONDS (24.8-34.2)
[2023-06-10] MEDS ORDERED: ASPIRIN 81MG CHEW TABLET PO ONE (22:15)
[2023-06-10 22:33] LABS: OSMOLALITY URINE 316 MOSM/KG (50-1400)
[2023-06-10] MEDS ORDERED: PIPERACILLIN/TAZOBACTAM SOD 3.375 GM in D5W MINI-BAG PLUS 50 ML IV ONE (22:40)
[2023-06-10 22:52] LABS: SODIUM,RANDOM URINE 12 MMOL/L
[2023-06-10 22:59] LABS: AMPHETAMINES LEVEL URINE NEGATIVE (NEGATIVE); BARBITURATES URINE NEGATIVE (NEGATIVE); BENZODIAZEPINES URINE NEGATIVE (NEGATIVE); COCAINE METABOLITE URINE NEGATIVE (NEGATIVE); METHADONE URINE NEGATIVE (NEGATIVE); OPIATES URINE NEGATIVE (NEGATIVE); PHENCYCLIDINE URINE NEGATIVE (NEGATIVE)
[2023-06-10 23:04] LABS: CANNABINOIDS URINE POSITIVE (NEGATIVE)
[2023-06-10] MEDS ORDERED: LORazepam 1 MG TAB PO PRN (23:25)
[2023-06-10] MEDS ORDERED: ACETAMINOPHEN TAB 650MG DOSE (2X325MG) PO PRN (23:25)
[2023-06-10] MEDS ORDERED: MED REC CURRENTLY UNOBTAINABLE XX SCH (23:30)
[2023-06-11] VITALS (10 sets, daily range): BP systolic 145–165; BP diastolic 81–93; TEMP 97.3–99.4; O2SAT 96–99
[2023-06-11] MEDS: LR 1,000 ML IV SCH ×4 (02:25→23:20)
[2023-06-11] MEDS: PIPERACILLIN/TAZOBACTAM SOD 2.25 GM in D5W MINI-BAG PLUS 50 ML IV SCH ×5 (04:58→23:08)
[2023-06-11] MEDS: OXAZEPAM 15MG CAP PO SCH ×3 (04:58→20:33)
[2023-06-11] MEDS: HEPARIN SOD (PORCINE) 5000UNITS/ML 1ML VIAL/SYRINGE SC SCH ×3 (04:58→20:33)
[2023-06-11] MEDS ORDERED: CEFTAROLINE FOSAMIL 300 MG in D5W 50 ML IV SCH (05:00)
[2023-06-11 05:04] LABS: HEMATOCRIT 35.7 % (42.0-52.0); HEMOGLOBIN 12.5 g/dl (13.5-17.5); MEAN CORPUSCULAR HEMOGLOBIN 33.2 pg (27.0-33.0); MEAN CORPUSCULAR VOLUME 94.7 fl (80.0-96.0); PLATELET COUNT, AUTOMATED 122 10^3/uL (150-450); RED BLOOD COUNT 3.77 10^6/uL (4.30-6.10); WHITE BLOOD COUNT 8.4 10^3/uL (4.0-10.0)
[2023-06-11 05:26] LABS: BLOOD UREA NITROGEN 56 MG/DL (9-23); CALCIUM LEVEL 7.4 MG/DL (8.3-10.6); CARBON DIOXIDE LEVEL 23 MMOL/L (20-31); CHLORIDE LEVEL 98 MMOL/L (98-107); CREATININE FOR GFR 3.95 MG/DL (0.70-1.30); GLOMERULAR FILTRATION RATE 16.6 (>49); GLUCOSE, FASTING 111 MG/DL (74-106); POTASSIUM SERUM 4.8 MMOL/L (3.5-5.1); SODIUM LEVEL 132 MMOL/L (136-145)
[2023-06-11 05:39] LABS: PROCALCITONIN 1.12 ng/ml
[2023-06-11 06:06] LABS: HEPATITIS C VIRUS ABY INDEX 0.03 INDEX (<0.8)
[2023-06-11 06:07] LABS: HEPATITIS B CORE ANTIBODY IGM NEGATIVE (NEGATIVE)
[2023-06-11 06:09] LABS: CPK CREATINE PHOSPHOKINASE 23465 U/L (46-171)
[2023-06-11] MEDS: ASPIRIN 81MG CHEW TABLET PO SCH (09:21)
[2023-06-11] MEDS: THIAMINE 100 MG TAB PO SCH ×2 (09:21→20:33)
[2023-06-11] MEDS: FOLIC ACID 1MG TAB PO SCH (09:21)
[2023-06-11] MEDS: MULTIVITAMINS/MINERALS THERAP 1 TAB PO SCH (09:21)
[2023-06-11] MEDS ORDERED: VITMTA PO (13:39)
[2023-06-11] MEDS ORDERED: HOME MED LIST COMPLETE! XX SCH (13:40)
[2023-06-11 16:55] LABS: ALBUMIN 2.5 G/DL (3.2-5.2); CALCIUM LEVEL 7.7 MG/DL (8.3-10.6); CREATININE FOR GFR 4.22 MG/DL (0.70-1.30); GLOMERULAR FILTRATION RATE 15.4 (>49); PHOSPHORUS LEVEL 4.8 MG/DL (2.4-5.1); POTASSIUM SERUM 4.9 MMOL/L (3.5-5.1)
[2023-06-12 04:12] VITALS: BP 156/90; TEMP 98.5; O2SAT 97
[2023-06-12] MEDS: LR 1,000 ML IV SCH ×4 (05:00→21:12)
[2023-06-12] MEDS: PIPERACILLIN/TAZOBACTAM SOD 2.25 GM in D5W MINI-BAG PLUS 50 ML IV SCH ×4 (05:07→22:51)
[2023-06-12 06:03] LABS: BASO % 0.2 % (0.0-1.0); EOS % 0.2 % (0.0-3.0); HEMATOCRIT 33.3 % (42.0-52.0); HEMOGLOBIN 11.8 g/dl (13.5-17.5); LYMPH # 0.5 10^3/uL (1.5-5.0); LYMPH % 5.3 % (24.0-44.0); MEAN CORPUSCULAR HEMOGLOBIN 33.2 pg (27.0-33.0); MEAN CORPUSCULAR HGB CONC 35.4 g/dl (32.0-36.5); MEAN CORPUSCULAR VOLUME 93.8 fl (80.0-96.0); MONO # 0.7 10^3/uL (0.0-0.8); MONO % 8.2 % (2.0-8.0); NEUTROPHILS # 7.2 10^3/uL (1.5-8.5); NEUTROPHILS % 85.7 % (36.0-66.0); PLATELET COUNT, AUTOMATED 131 10^3/uL (150-450); RED BLOOD COUNT 3.55 10^6/uL (4.30-6.10); WHITE BLOOD COUNT 8.4 10^3/uL (4.0-10.0)
[2023-06-12] MEDS: HEPARIN SOD (PORCINE) 5000UNITS/ML 1ML VIAL/SYRINGE SC SCH ×3 (06:09→21:11)
[2023-06-12] MEDS: OXAZEPAM 15MG CAP PO SCH ×3 (06:09→21:10)
[2023-06-12 06:12] LABS: INR 1.14; PROTHROMBIN TIME 14.3 SECONDS (12.5-14.5)
[2023-06-12 06:22] LABS: PREALBUMIN 7.7 MG/DL (10.0-40.0)
[2023-06-12 06:34] LABS: ALBUMIN 2.4 G/DL (3.2-5.2); BILIRUBIN,TOTAL 1.3 MG/DL (0.3-1.2); CALCIUM LEVEL 7.9 MG/DL (8.3-10.6); CREATININE FOR GFR 4.07 MG/DL (0.70-1.30); GLOMERULAR FILTRATION RATE 16.1 (>49); POTASSIUM SERUM 4.9 MMOL/L (3.5-5.1); TOTAL PROTEIN 4.9 G/DL (5.7-8.2)
[2023-06-12 07:59] VITALS: BP 131/75; TEMP 97.2; O2SAT 96
[2023-06-12 08:22] LABS: HEMATOCRIT 34.5 % (42.0-52.0); MEAN CORPUSCULAR HEMOGLOBIN 32.9 pg (27.0-33.0); MEAN CORPUSCULAR HGB CONC 34.8 g/dl (32.0-36.5); MEAN CORPUSCULAR VOLUME 94.5 fl (80.0-96.0); PLATELET COUNT, AUTOMATED 147 10^3/uL (150-450); RED BLOOD COUNT 3.65 10^6/uL (4.30-6.10); WHITE BLOOD COUNT 8.5 10^3/uL (4.0-10.0)
[2023-06-12] MEDS: ASPIRIN 81MG CHEW TABLET PO SCH (08:27)
[2023-06-12] MEDS: THIAMINE 100 MG TAB PO SCH ×2 (08:27→21:10)
[2023-06-12] MEDS: FOLIC ACID 1MG TAB PO SCH (08:27)
[2023-06-12] MEDS: MULTIVITAMINS/MINERALS THERAP 1 TAB PO SCH (08:27)
[2023-06-12 08:45] LABS: ALBUMIN 2.4 G/DL (3.2-5.2); BILIRUBIN,TOTAL 1.3 MG/DL (0.3-1.2); CALCIUM LEVEL 8.1 MG/DL (8.3-10.6); CREATININE FOR GFR 3.99 MG/DL (0.70-1.30); GLOMERULAR FILTRATION RATE 16.4 (>49); POTASSIUM SERUM 4.6 MMOL/L (3.5-5.1); TOTAL PROTEIN 5.1 G/DL (5.7-8.2)
[2023-06-12 11:24] VITALS: BP 165/89; TEMP 97.1; O2SAT 100
[2023-06-12 15:35] VITALS: BP 149/88; TEMP 97; O2SAT 99
[2023-06-12 19:12] VITALS: BP 160/88; TEMP 98.1; O2SAT 98
[2023-06-12 22:50] VITALS: BP 149/81; TEMP 97.8; O2SAT 99
[2023-06-13 03:00] VITALS: BP 159/77; TEMP 97.4; O2SAT 98
[2023-06-13 05:02] LABS: HEMATOCRIT 32.2 % (42.0-52.0); HEMOGLOBIN 11.2 g/dl (13.5-17.5); MEAN CORPUSCULAR HEMOGLOBIN 33.2 pg (27.0-33.0); MEAN CORPUSCULAR HGB CONC 34.8 g/dl (32.0-36.5); MEAN CORPUSCULAR VOLUME 95.5 fl (80.0-96.0); PLATELET COUNT, AUTOMATED 151 10^3/uL (150-450); RED BLOOD COUNT 3.37 10^6/uL (4.30-6.10)
[2023-06-13] MEDS: OXAZEPAM 15MG CAP PO SCH (05:13)
[2023-06-13] MEDS: PIPERACILLIN/TAZOBACTAM SOD 2.25 GM in D5W MINI-BAG PLUS 50 ML IV SCH ×4 (05:13→22:24)
[2023-06-13] MEDS: HEPARIN SOD (PORCINE) 5000UNITS/ML 1ML VIAL/SYRINGE SC SCH ×3 (05:14→20:11)
[2023-06-13 05:24] LABS: CALCIUM LEVEL 7.8 MG/DL (8.3-10.6); CREATININE FOR GFR 3.55 MG/DL (0.70-1.30); GLOMERULAR FILTRATION RATE 18.8 (>49); POTASSIUM SERUM 4.6 MMOL/L (3.5-5.1)
[2023-06-13 07:54] VITALS: BP 158/84; TEMP 97.5; O2SAT 93
[2023-06-13] MEDS: THIAMINE 100 MG TAB PO SCH ×2 (10:13→20:11)
[2023-06-13] MEDS: FOLIC ACID 1MG TAB PO SCH (10:13)
[2023-06-13] MEDS: ASPIRIN 81MG CHEW TABLET PO SCH (10:13)
[2023-06-13] MEDS: LR 1,000 ML IV SCH ×2 (10:15→17:34)
[2023-06-13] MEDS: MULTIVITAMINS/MINERALS THERAP 1 TAB PO SCH (10:16)
[2023-06-13] MEDS ORDERED: DOXYCYCLINE HYCLATE 100 MG in D5W MINI-BAG PLUS 100 ML IV SCH (10:30)
[2023-06-13 11:07] VITALS: BP 152/88; TEMP 96.6; O2SAT 99
[2023-06-13 15:18] VITALS: BP 162/88; TEMP 96.6; O2SAT 99
[2023-06-13 19:23] VITALS: BP 144/78; TEMP 98.7; O2SAT 98
[2023-06-14 00:02] VITALS: BP 162/77; TEMP 98.8; O2SAT 99
[2023-06-14] MEDS: LR 1,000 ML IV SCH ×2 (00:39→08:22)
[2023-06-14 03:31] VITALS: BP 156/84; TEMP 98.3; O2SAT 98
[2023-06-14] MEDS: HEPARIN SOD (PORCINE) 5000UNITS/ML 1ML VIAL/SYRINGE SC SCH ×3 (05:00→20:01)
[2023-06-14] MEDS: PIPERACILLIN/TAZOBACTAM SOD 2.25 GM in D5W MINI-BAG PLUS 50 ML IV SCH ×3 (05:01→17:23)
[2023-06-14 07:31] LABS: HEMATOCRIT 32.7 % (42.0-52.0); HEMOGLOBIN 11.5 g/dl (13.5-17.5); MEAN CORPUSCULAR HEMOGLOBIN 33.5 pg (27.0-33.0); MEAN CORPUSCULAR HGB CONC 35.2 g/dl (32.0-36.5); MEAN CORPUSCULAR VOLUME 95.3 fl (80.0-96.0); PLATELET COUNT, AUTOMATED 153 10^3/uL (150-450); RED BLOOD COUNT 3.43 10^6/uL (4.30-6.10); WHITE BLOOD COUNT 6.5 10^3/uL (4.0-10.0)
[2023-06-14 08:00] VITALS: BP 160/85; TEMP 97.7; O2SAT 97
[2023-06-14 08:03] LABS: CALCIUM LEVEL 8.3 MG/DL (8.3-10.6); CREATININE FOR GFR 2.76 MG/DL (0.70-1.30); GLOMERULAR FILTRATION RATE 25.1 (>49); POTASSIUM SERUM 4.9 MMOL/L (3.5-5.1)
[2023-06-14] MEDS: ASPIRIN 81MG CHEW TABLET PO SCH (08:18)
[2023-06-14] MEDS: MULTIVITAMINS/MINERALS THERAP 1 TAB PO SCH (08:18)
[2023-06-14] MEDS: THIAMINE 100 MG TAB PO SCH (08:18)
[2023-06-14] MEDS: FOLIC ACID 1MG TAB PO SCH (08:18)
[2023-06-14] MEDS: NS 0.45% 1,000 ML IV SCH (10:28)
[2023-06-14 15:15] VITALS: BP 167/86; TEMP 97.8; O2SAT 98
[2023-06-14 16:46] LABS: C REACTIVE PROTEIN QUANTITATIV 2.9 MG/DL (<1.0)
[2023-06-14 19:36] VITALS: BP 156/81; TEMP 99.5; O2SAT 97
[2023-06-15 03:27] VITALS: BP 154/84; TEMP 98.5; O2SAT 96
[2023-06-15] MEDS: NS 0.45% 1,000 ML IV SCH (05:50)
[2023-06-15] MEDS: HEPARIN SOD (PORCINE) 5000UNITS/ML 1ML VIAL/SYRINGE SC SCH ×2 (05:50→14:00)
[2023-06-15] MEDS ORDERED: AUGMENTIN 500MG TAB PO SCH (06:00)
[2023-06-15 06:09] LABS: HEMATOCRIT 33.4 % (42.0-52.0); HEMOGLOBIN 11.6 g/dl (13.5-17.5); MEAN CORPUSCULAR HGB CONC 34.7 g/dl (32.0-36.5); MEAN CORPUSCULAR VOLUME 95.2 fl (80.0-96.0); PLATELET COUNT, AUTOMATED 158 10^3/uL (150-450); RED BLOOD COUNT 3.51 10^6/uL (4.30-6.10); WHITE BLOOD COUNT 7.1 10^3/uL (4.0-10.0)
[2023-06-15 06:33] LABS: CALCIUM LEVEL 8.3 MG/DL (8.3-10.6); CREATININE FOR GFR 2.19 MG/DL (0.70-1.30); GLOMERULAR FILTRATION RATE 32.8 (>49); POTASSIUM SERUM 4.3 MMOL/L (3.5-5.1)
[2023-06-15 07:43] VITALS: BP 141/79; TEMP 98.5; O2SAT 98
[2023-06-15] MEDS: ASPIRIN 81MG CHEW TABLET PO SCH (07:54)
[2023-06-15] MEDS: FOLIC ACID 1MG TAB PO SCH (07:54)
[2023-06-15] MEDS: MULTIVITAMINS/MINERALS THERAP 1 TAB PO SCH (07:54)
[2023-06-15] MEDS: THIAMINE 100 MG TAB PO SCH (07:54)
[2023-06-15] MEDS: CLOTRIMAZOLE 1% TOPICAL CREAM 30GM TOP SCH ×2 (07:55→09:23)
[2023-06-15] MEDS ORDERED: AMOX500T2 PO (11:28)
[2023-06-15] MEDS ORDERED: ASPI81CH8 PO (11:37)
[2023-06-15 11:40] LABS: ALBUMIN 2.5 G/DL (3.2-5.2); BILIRUBIN,DIRECT 0.2 MG/DL (<0.4); BILIRUBIN,TOTAL 0.6 MG/DL (0.3-1.2); TOTAL PROTEIN 4.9 G/DL (5.7-8.2)
== END 2023-06-15 15:00 | disposition home or self-care (01) | DRG 682 ==
LOC: M ED 18:20 → M ED INP 23:22 → M PCU 06-11 01:08
PROVIDERS: ADMIT Internal Medicine; ATTEND Internal Medicine
PROC: B246ZZZ Ultrasonography of Right and Left Heart (ICD-10-PCS; principal; 2023-06-12)
DX: N17.9 Acute kidney failure, unspecified (principal); G92.8 Other toxic encephalopathy; M62.82 Rhabdomyolysis; E87.1 Hypo-osmolality and hyponatremia; F10.230 Alcohol dependence with withdrawal, uncomplicated; L03.317 Cellulitis of buttock; I10 Essential (primary) hypertension; E78.5 Hyperlipidemia, unspecified; F41.9 Anxiety disorder, unspecified; F32.A Depression, unspecified; F03.90 Unspecified dementia, unspecified severity, without behavioral disturbance, psychotic disturbance, mood disturbance, and anxiety; E86.0 Dehydration; Z79.899 Other long term (current) drug therapy; Z20.822 Contact with and (suspected) exposure to COVID-19; E55.9 Vitamin D deficiency, unspecified; R25.1 Tremor, unspecified; R74.01 Elevation of levels of liver transaminase levels

== ENCOUNTER → 2023-06-20 | Outpatient (REF) | payer OTHER ==
[~2023-06-20] MED LIST changes: +AMOX500T2 PO; +ASPI81CH8 PO
[2023-06-20 14:48] LABS: ALBUMIN 3.2 G/DL (3.2-5.2); BILIRUBIN,TOTAL 0.6 MG/DL (0.3-1.2); CREATININE FOR GFR 1.35 MG/DL (0.70-1.30); GLOMERULAR FILTRATION RATE 57.4 (>49); POTASSIUM SERUM 4.4 MMOL/L (3.5-5.1); TOTAL PROTEIN 5.8 G/DL (5.7-8.2)
== END ==
LOC: M SFHCADAM 10:31
PROVIDERS: ATTEND Physician Assistant Medical
DX: M62.82 Rhabdomyolysis (principal); N17.9 Acute kidney failure, unspecified